=== PATIENT | female | born 1970 | race Caucasian/White ===

== ENCOUNTER → 2020-04-09 | Outpatient (CLI) | payer OTHER, SELFPAY | END | disposition home or self-care (01) | LOC: MTDU 17:29 | PROVIDERS: PCP Internal Medicine | DX: R05 Cough (principal); R51.9 Headache, unspecified; R09.81 Nasal congestion; Z20.828 Contact with and (suspected) exposure to other viral communicable diseases | CPT/HCPCS: 87635; C9803; U0003 ==

== ENCOUNTER 2023-05-16 21:29 | Emergency (ER) | payer OTHER, SELFPAY ==
[2023-05-16 21:29] VITALS: BP 132/80; PULSE 81; RESP 16; TEMP 36.3; O2SAT 99; BMI 25.6
--- NOTE | 2023-05-16 21:41 | EX.ED.UPPERE ---
HPI History of Present Illness Chief Complaint: Upper Extremity Injury Informant: patient Narrative Narrative: Healthy 53-year-old female states she stumbled on pavement outside falling backwards and catching herself on outstretched left hand, injuring her wrist. She points to the area of the snuffbox where the pain is. She does not have pain or injury elsewhere. [id number]. No prodromal symptoms prior to the fall. PFSH PFSH Medical History no medical history no medical history Allergy/AdvReac Type Severity Reaction Status Date / Time No Known Allergies Allergy Verified 05/16/23 21:31 Family History no significant family his Surgical History no surgical history Social History Smoking Status: Former smoker ROS ROS ED Constitutional Constitutional ED: Denies chills or fever(s) Musculoskeletal Musculoskeletal: Reports extremity pain; Denies neck pain Integumentary Denies Abrasions, rash or wounds Neurologic Neurologic: Denies paresthesias or weakness EXAM Physical Exam Const Vital Signs: 05/16/23 21:29 Temperature 97.4 F L Temperature Source Temporal Pulse Rate 81 Respiratory Rate 16 Blood Pressure 132/80 H Blood Pressure Mean 97 Pulse Ox 99 Oxygen Delivery Method Room Air Positive well nourished and well developed General Appearance ED: well developed and NAD Neck full ROM and supple Back/Spine normal ROM and normal to inspection Extremity normal to inspection and full ROM Extremity Narrative: No bony tenderness throughout the left hand or wrist including the snuffbox. No pain with axial loading of the thumb. Full range of motion of the wrist including supination and pronation without any pain. Can flex and extend without any difficulty. When she extends all of her fingers, spreading them, she does have some pain in the left thenar eminence there is some tenderness there but dorsally on the metacarpal, there is no tenderness. No swelling. Neuro oriented x3, no focal motor deficits and no sensory deficits noted Sensorium / Orientation: alert Psych mental status grossly normal and thought process normal Skin no wounds Rashes: no rashes MDM MDM MDM Narrative Medical decision making narrative: 4 view x-ray series of the left wrist including a navicular view are all negative for acute fracture or dislocation on my interpretation. Patient has excellent range of motion and no bony tenderness so I am okay with her treating this supportively without a splint as is she. Follow-up advised as needed. Discharge Plan Triage Chief Complaint: Upper Extremity Injury ED Provider: Nick Llanos Dx/Rx/DC Orders Clinical Impression: Left wrist sprain Instructions: ED Wrist Sprain Primary Care Provider: Joy Wheeler Referrals: Nghia Daniel DO [Med Staff - Active Staff] - 1 Week if not improving Joy Wheeler MD [Primary Care Provider] - Disposition Disposition: Home, Self Care
--- NOTE | 2023-05-16 21:45 | RAD_ITS ---
INDICATION: injury -- include navicular please EXAMINATION/TECHNIQUE: X-RAY - LEFT XR Wrist Min 3 Views COMPARISON: None. FINDINGS: No acute fracture or malalignment. No blastic or lytic lesions. Mild degenerative changes of the radiocarpal joint and first carpometacarpal joint. Mild soft tissue swelling of the wrist. RAD/Wrist min 3 Views IMPRESSION: No acute radiographic abnormalities. Mild degenerative changes of the radiocarpal joint and first carpometacarpal joint. Electronically Signed: Ramon Ashraf MD at 22:55 EST ,
[2023-05-16 23:07] VITALS: BP 128/78; PULSE 80; RESP 16; O2SAT 98
== END 2023-05-16 23:08 | disposition home or self-care (01) ==
PROVIDERS: Emergency Provider Emergency Medicine; PCP Internal Medicine; Visit Provider Emergency Medicine
DX: S63.92XA Sprain of unspecified part of left wrist and hand, initial encounter (principal); Z87.891 Personal history of nicotine dependence; W01.0XXA Fall on same level from slipping, tripping and stumbling without subsequent striking against object, initial encounter
CPT/HCPCS: 73110; 99282